=== PATIENT | male | born 1950 | race Asian ===

== ENCOUNTER → 2023-08-10 | Outpatient (CLI) | payer MEDICARE, OTHER | END | disposition home or self-care (01) | LOC: LABMN 15:01 | PROVIDERS: ATTEND Chiropractor | DX: M47.816 Spondylosis without myelopathy or radiculopathy, lumbar region (principal); M13.80 Other specified arthritis, unspecified site; I70.0 Atherosclerosis of aorta; M25.78 Osteophyte, vertebrae; G95.89 Other specified diseases of spinal cord | CPT/HCPCS: 72100 ==